=== PATIENT | male | born 1960 | race Caucasian/White ===

== ENCOUNTER 2016-11-04 15:17 | Emergency (ER) | payer BC ==
[~2016-11-04] VITALS: Ht 177.8 cm; Wt 99.4 kg
[~2016-11-04 15:17] MED LIST: HYDR-5688 PO; LVNIS150 SQ; OMEG10007 PO; ONDA4TAB65 PO; PRT40 PO; RXC5 PO; SYN150 PO
[2016-11-04 15:34] VITALS: TEMP 36.5; O2SAT 93; Ht 177.8 cm; Wt 99.4 kg
[2016-11-04] MEDS ORDERED: PANT40TA PO (16:57)
[2016-11-04] MEDS ORDERED: OXYC-609 PO (16:57)
[2016-11-04] MEDS ORDERED: HYDR-5688 PO (16:57)
[2016-11-04] MEDS ORDERED: LEVO150T PO (16:57)
[2016-11-04] MEDS ORDERED: ENOX120I SQ (16:57)
[2016-11-04] MEDS ORDERED: ONDA4TAB46 PO (16:57)
[2016-11-04 17:14] VITALS: BP 138/72; PULSE 78
[2016-11-04] MEDS ORDERED: MULT-506 PO (18:17)
[2016-11-04] MEDS ORDERED: FURO-85 PO (18:17)
--- NOTE | 2016-11-06 00:24 | EMERGENCY ROOM VISIT NOTE ---
ED Visit Note First contact with patient: 15:46 Chief Complaint: I've been bleeding from the right side of my nose for the last 3 hours. History of Present Illness: Mr. Medrano 55-year-old white male who ambulates into the ED complaining of a spontaneous nosebleed from the right nostril that started 2 hours ago. Historically patient has a history of lower extremity and pulmonary embolism and is on Lovenox. He reports since being on Lovenox he has had an occasional episode of epistaxis mostly from the right side of the nose that quickly resolves with nasal pressure. Patient reports approximately 3 hours before he arrived into the ED he developed a spontaneous epistaxis from the right nostril. Since that time he has tried multiple attempts to control bleeding but has been unsuccessful; it seems the last time he was here for his nosebleed and he was given Afrin and a nasal clip, he did report he tried these attempts but was unsuccessful. He has not identified any aggravating or alleviating factors related to the bleeding. He denies taking any medication for the bleeding prior to arrival at the hospital. He denies any associated symptoms including other abnormal or unusual bleeding, difficulty breathing, headache, dizziness, lightheadedness, chest pain, shortness of breath, abdominal pain, nausea/vomiting. Review of Systems: As noted above in history of present illness. 8 body systems were reviewed and found to be negative as noted above. Past Medical History: As noted above and bronchitis, pancreatic cancer, basal cell cancer, status post cholecystectomy and unspecified foot surgery. Current Medications: Medications Dose Route/Sig Max Daily Dose Days Date Category Dose Instructions Andale-3 (Fish Oil) 1 Ea Cap 1 Cap PO DAILY 10/28/16 Reported Multivitamin (Multivitamins) Tab 1 Tab PO DAILY 10/28/16 Reported Lasix (Furosemide) 20 Mg Tab Unknown Dose PO DAILY 10/28/16 Reported [place] 5MG/325MG (Acetaminophen/Hydrocodone Bitart) Tab 1-2 Tablet PO Q 6 HRS PRN 09/26/16 Rx PRN PAIN Zofran (Ondansetron Hcl) 4 Mg Tab 1 Tab PO Q4H PRN 3 09/15/16 Rx Synthroid (Levothyroxine Sodium) 150 Mcg Tab 150 Mcg PO DAILYBB 30 09/15/16 Rx Pantoprazole Sodium (Pantoprazole) 40 Mg Tab 40 Mg PO DAILY 30 09/15/16 Rx Oxycodone HCl 5 Mg Tab 5 Mg PO Q6 PRN 10 09/15/16 Rx Lovenox (Enoxaparin) 150 Mg/1 Ml Inj 120 Mg SQ ONE 14 09/15/16 Rx Allergies to Medications: Patient denies. Social History: Patient is currently employed; he feels safe in his home environment; he denies tobacco and alcohol use. Physical Examination: Vital Signs: Date Time Temp Pulse Resp B/P Pulse Ox O2 Delivery O2 Flow Rate FiO2 11/04/16 17:14 78 16 138/72 11/04/16 15:34 36.5 86 18 139/76 93 Room Air GENERAL: 55-year-old male in no acute distress, chronically ill-appearing, afebrile and hemodynamically stable. NEUROLOGICAL: Awake, alert and oriented to person, place and time. Answering questions appropriately and following commands. Normal gait. Good hand eye coordination. No focal motor sensory deficits. SKIN: Warm, dry and jaundice. HEENT: Atraumatic and normocephalic. PERRLA. Sclera jaundice and conjunctiva pink. Active bleeding from the right nostril and no bleeding from the left nostril. No tenderness over the nasal bones. No obvious soft tissue injury. No facial tenderness around the orbits with the zygomatic arch. Airway is patent. There is a small amount of blood in the posterior pharyngeal area. Speech normal. THORAX: Lungs sounds are clear to auscultation and equal bilaterally with symmetrical chest wall. No wheezing, rales or rhonchi. ED Course: Patient is assessed as noted above. A 5.5 cm Rapid Rhino nasal balloon was placed in the right nostril. Initially I only put 4 mL of air in the balloon but he continued to bleed around this so I slowly increased the air tool total of 5.5 mL which then control bleeding. Discharged upon moving no bleeding reoccurred so he was discharged home in stable condition. Clinical Impression: Right nostril epistaxis. Disposition: Patient discharged home in stable condition; prior to departure he subjectively reported he was having pain in his right nostril and rated this discomfort 2/10. Plan: Patient was encouraged to continue his current medications as prescribed. Patient was encouraged to follow-up with PCP or return to the ED and 36-48 hours to have the nasal tampon removed. Patient was also given the name and phone number of the ENT specialist on-call for possible follow-up. Patient was encouraged return the ED for recurrent bleeding, any new abnormal bleeding, fevers or any new/concerning symptoms.
== END 2016-11-04 17:15 | disposition home or self-care (01) ==
LOC: C.EDB 15:18 → C.EDD 17:15
DX: R04.0 Epistaxis (principal); Z86.711 Personal history of pulmonary embolism; Z79.01 Long term (current) use of anticoagulants; Z85.07 Personal history of malignant neoplasm of pancreas; Z90.49 Acquired absence of other specified parts of digestive tract; Z98.890 Other specified postprocedural states

== ENCOUNTER → 2016-11-27 | Outpatient (CLI) | payer BC ==
[~2016-11-27] MED LIST changes: +ENOX120I SQ; +FURO-85 PO; +LEVO150T PO; -LVNIS150 SQ; +MULT-506 PO; -OMEG10007 PO; +ONDA4TAB46 PO; -ONDA4TAB65 PO; +OXYC-609 PO; +PANT40TA PO; +POTA20TA16 PO; -PRT40 PO; -RXC5 PO; -SYN150 PO
--- NOTE | 2016-11-27 14:33 | DIAGNOSTIC IMAGING REPORT ---
BILIARY ULTRASOUND CLINICAL HISTORY: PANCREATIC CANCER C25.3 COMPARISON STUDY: 09/11/2016 FINDINGS: There are in numerable space-occupying hepatic masses consistent with extensive hepatic metastasis. The gallbladder surgically absent. There is no right-sided hydronephrosis. There was suboptimal evaluation of the pancreas. The spleen is enlarged measuring 18.8 cm. There is moderate ascites. There is no definite ductal dilatation. The common bile duct measured 5 mm. IMPRESSION: 1. Innumerable space-occupying hepatic masses consistent with extensive metastasis 2. Surgically absent gallbladder 3. Ascites Electronically signed by: Felipe Lin M.D. 11/27/2016 2:31 PM Dictated Date/Time: 11/27/2016 2:27 PM
== END | disposition home or self-care (01) ==
LOC: C.ULTR 13:48
PROVIDERS: ATTEND Internal Medicine Hematology & Oncology
DX: C25.3 Malignant neoplasm of pancreatic duct (principal); R16.0 Hepatomegaly, not elsewhere classified; R18.8 Other ascites; Z90.49 Acquired absence of other specified parts of digestive tract

== ENCOUNTER → 2016-12-17 | Outpatient (CLI) | payer BC ==
[~2016-12-17] MED LIST changes: +OPTIRAY 320 IV PRN
--- NOTE | 2016-12-17 10:31 | DIAGNOSTIC IMAGING REPORT ---
CHEST CT WITH CONTRAST CT DOSE: 1751.15 mGy.cm HISTORY: Pancreatic carcinoma PANCREATIC CA TECHNIQUE: Multiaxial CT images of the chest were performed following the intravenous administration of contrast. COMPARISON: None. FINDINGS: Mild is interstitial changes throughout both hemithoraces. Multiple not multiple nonspecific parenchymal nodules bilaterally. 4 mm right peritracheal nodule transaxial image 69. 2 cm partially chronic nodule anterior right cardiophrenic angle within the right upper lobe. Pleural-based densities posterior aspect right as well as left hemithorax. Several small vague additional parenchymal densities bilaterally. Bronchiectatic change with mild right as well as left lower lobe atelectatic change. Small right effusion. Minimal left effusion. Findings of diffuse hepatic metastatic change. No major mediastinal or hilar adenopathy. No significant mediastinal or hilar adenopathy. Moderate degenerative changes of the osseous structures. IMPRESSION: 1. Findings highly suspect for metastatic parenchymal and/or pleural based nodularity throughout both hemithoraces. 2. Focal basilar atelectatic and/or chronic interstitial-type change.. 3. Diffuse hepatic metastatic disease. 4. No evidence for major hilar or mediastinal adenopathy. Electronically signed by: Tony Wallace M.D. 12/17/2016 10:29 AM Dictated Date/Time: 12/17/2016 10:23 AM
--- NOTE | 2016-12-17 11:11 | DIAGNOSTIC IMAGING REPORT ---
CT OF THE ABDOMEN AND PELVIS WITH CONTRAST CLINICAL HISTORY: Metastatic pancreatic cancer. Rising bilirubin. COMPARISON STUDY: CT of the abdomen and pelvis September 12, 2016 and right upper quadrant ultrasound November 27, 2016. TECHNIQUE: Following IV administration of 94 mL of Optiray-320, axial images of the abdomen and pelvis were obtained from the lung bases to the proximal femurs. Images were reviewed in the axial, sagittal, and coronal planes. IV contrast was administered without complication. Oral contrast was administered. FINDINGS: The chest will be reported separately. Innumerable bilobar hepatic metastases are noted. The majority of these have mildly increased in size since exam of September 12, 2016. An index segment 5/4 lesion shown on image 45 measures 11 x 10 cm. It previously measured 10.3 x 8.6 cm. An index segment 7 lesion measures 12.8 x 9.5 cm. It previously measured 12 x 8.5 cm. A lateral segment lesion shown on image 42 measures 3.1 cm. It has slightly decreased in size. It previously measured 3.5 cm. Overall, the hepatic metastases have progressed since prior exam. Splenomegaly is noted with suspected evolving splenic infarcts as shown on prior exam. The primary pancreatic tail lesion is slightly decreased in size. It now measures 5.1 cm. It previously measured 5.9 cm. The splenic vein is occluded, as before. Associated collaterals are noted. The main, left and right portal veins are patent. Biliary ductal dilatation within the lateral segment of the liver is again noted. The liver is enlarged. Massive ascites has significantly increased since prior exam. Several peritoneal nodules are noted. The adrenal glands and kidneys are normal. There is no hydronephrosis. There is no evidence for a bowel obstruction. A 5 mm sclerotic lesion within the L4 vertebral body is new since prior exam. A small sclerotic lesion within the right seventh rib is new. IMPRESSION: 1. Overall, progression of extensive hepatic metastatic disease since exam of September 12, 2016. The majority of the lesions have mildly increased in size while a few lesions have slightly decreased in size. 2. Significant interval increase in massive abdominal and pelvic ascites. 3. Interval development of small sclerotic lesions within the L4 vertebral body and right seventh rib which are suggestive of small skeletal metastases. 4. Mild interval decrease in size of the primary pancreatic tail lesion. 5. Evolving splenic infarcts. 6. No bowel obstruction. 7. Anasarca. Electronically signed by: Alhaji Ruano M.D. 12/17/2016 11:10 AM Dictated Date/Time: 12/17/2016 10:53 AM
== END | disposition home or self-care (01) ==
LOC: C.CTS 09:37
PROVIDERS: ATTEND Internal Medicine Hematology & Oncology
DX: C25.3 Malignant neoplasm of pancreatic duct (principal); R18.8 Other ascites; M89.9 Disorder of bone, unspecified; D73.5 Infarction of spleen; R91.8 Other nonspecific abnormal finding of lung field; C78.7 Secondary malignant neoplasm of liver and intrahepatic bile duct

== ENCOUNTER 2016-12-20 13:08 | Day surgery (SDC) | payer BC ==
[~2016-12-20] VITALS: Ht 177.8 cm; Wt 101.0 kg
[~2016-12-20 13:08] MED LIST changes: +CEFAZOLIN 2000 MG/60 ML D5W IV SCH; +LACTATED RINGER'S 1000ML 1,000 ML IV SCH; -OPTIRAY 320 IV PRN; -POTA20TA16 PO
[2016-12-20] MEDS ORDERED: POTA20TA16 PO (13:31)
[2016-12-20 13:39] VITALS: BP 109/73; PULSE 82; TEMP 36.9; O2SAT 95; Ht 177.8 cm; Wt 101.0 kg
[2016-12-20] MEDS ORDERED: LIDOCAINE HCL 2% 2 ML VIAL (20MG/ML) ONE (14:09)
[2016-12-20] MEDS ORDERED: PROPOFOL IV EMULSION 10 MG/ML 20 ML VIAL IV ONE (14:09)
[2016-12-20] MEDS ORDERED: SUCCINYLCHOLINE CHLORIDE 20 MG/ML 10 ML VIAL IV ONE (14:09)
[2016-12-20] MEDS ORDERED: ONDANSETRON INJ 2 MG/ML 2 ML VIAL ONE (14:09)
[2016-12-20] MEDS ORDERED: DEXAMETHASONE SOD INJ 4 MG/ML VIAL ONE (14:09)
[2016-12-20] MEDS ORDERED: MIDAZOLAM HCL 1 MG/ML 2ML VIAL ONE (14:10)
[2016-12-20] MEDS ORDERED: FENTANYL CITRATE INJ 50 MCG/1 ML 2 ML VIAL ONE (14:10)
[2016-12-20 14:22] VITALS: BP 109/73; PULSE 82; TEMP 36.9; O2SAT 95
--- NOTE | 2016-12-20 14:55 | History & Physical Bridge Note ---
H&P Re-Evaluation Bridge Note: I have examined the patient, reviewed the History & Physical and in the interval since the performance of the History & Physical I have noted the following changes of clinical significance: No changes noted
--- NOTE | 2016-12-20 14:57 | Discharge Instructions ---
Discharge Instructions Admission Reason for Admission: Ascites, Pancreatic Cancer Discharge Discharge Diagnosis / Problem: Ascites, Pancreatic Cancer Discharge Goals Goal(s): Decrease discomfort, Improve function Activity Recommendations Activity Limitations: as noted below Lifting Limitations: no more than 5 pounds Exercise/Sports Limitations: until after follow-up appointment May Resume Sexual Activity: after follow-up appointment Shower/Bathe: tomorrow . Instructions / Follow-Up Instructions / Follow-Up Please follow-up with Dr. Hoyos in the office in 1-2 weeks. Current Hospital Diet Patient's current hospital diet: Discharge Diet Recommended Diet: Regular Diet Pending Studies Studies pending at discharge: no Medical Emergencies . Who to Call and When: Medical Emergencies: If at any time you feel your situation is an emergency, please call 911 immediately. . Non-Emergent Contact Non-Emergency issues call your: Primary Care Provider, Surgeon Call Non-Emergent contact if: temperature is above 101, your pain is not controlled, wound has increased drainage, wound has increased redness . "Provider Documentation" section prepared by Josiane Bellamy. VTE Core Measure Inpt VTE Proph given/why not?: Unfractionated heparin SQ, SCD's
[2016-12-20] MEDS ORDERED: ATROPINE SULFATE 0.1 MG/ML 5ML SYR IV PRN (15:00)
[2016-12-20] MEDS ORDERED: ONDANSETRON INJ 2 MG/ML 2 ML VIAL IV PRN ×2 (15:00→15:45)
[2016-12-20] MEDS ORDERED: EpHEDrine SULFATE INJ 50 MG/ML AMP IV PRN (15:00)
[2016-12-20] MEDS ORDERED: ALBUMIN HUMAN 5% 12.5 GM/250 ML VIAL IV ONE (15:13)
[2016-12-20] MEDS ORDERED: PHENYLEPHRINE 100MCG/ML 5ML SYR ONE (15:31)
[2016-12-20] MEDS ORDERED: SODIUM CHLORIDE 0.9% 1000ML 1,000 ML IV SCH (15:39)
[2016-12-20] MEDS ORDERED: KETOROLAC TROMETHAMINE 30 MG/ML VIAL IV. PRN (15:45)
[2016-12-20] MEDS ORDERED: HYDROCODONE/ACETAMOPHEN 5/325MG TAB PO PRN ×2 (15:45)
[2016-12-20] MEDS ORDERED: IBUPROFEN 600 MG TAB PO PRN (15:45)
--- NOTE | 2016-12-20 15:55 | [facility] Operative Report ---
Operative Report Operative Date Dec 20, 2016. Pre-Operative Diagnosis symptomatic malignant asictes Post-Operative Diagnosis same Procedure(s) Performed placement of abdominal pleurex drainage catheter Etl Consultant Surgeon(s) kamlesh Watson Findings silvia ascitic fluid Anesthesia GET Complication(s) None Disposition Recovery Room / PACU I attest to the content of the Intraoperative Record and any orders documented therein. Any exceptions are noted below.
[2016-12-20] MEDS: FENTANYL CITRATE INJ 50 MCG/1 ML 2 ML VIAL IV PRN ×4 (16:00→16:20)
--- NOTE | 2016-12-20 16:14 | OPERATIVE REPORT ---
DATE OF OPERATION: 12/20/2016 PREOPERATIVE DIAGNOSIS: Metastatic pancreatic cancer with a symptomatic ascites. POSTOPERATIVE DIAGNOSIS: Same. PROCEDURE: Placement of abdominal peritoneal PleurX catheter. SURGEON: Zeesahn Hoyos DO [facility] DEMON[employer]ATOR: Petar Watson PA-C ESTIMATED BLOOD LOSS: Approximately 10 mL COMPLICATIONS: No immediate. ANESTHESIA: General. DESCRIPTION OF PROCEDURE: After informed consent was obtained, the patient was taken to the operating suite, placed in supine position. After successful intubation, the abdomen was shaved and sterilely prepped and draped in usual fashion. In the right mid to lower quadrant, a small skin incision made with an 11 blade scalpel. A finder needle was advanced and with one stick, yellow silvia ascitic fluid was able to be obtained. We advanced the guidewire towards the pelvis and then removed the needle. A dilator was advanced over the guidewire. After this, a larger dilator were made with a peel away sheath was then advanced over the guidewire as well. Up in the right upper quadrant, made a second incision and tunneled the PleurX catheter through it, so that the cuff was just under the skin at the upper incision. We then used the stiffening guidewire and removed the vascular dilator and advanced the catheter and stiffening stylet through the peel away sheath. We then removed the stylet and peeled away the sheath leaving the catheter in place. We then connected the catheter to some PleurX vacuum containers then we were able to take out about 2000 mL of ascitic fluid. This did make a dramatic difference in his distention. He tolerated this quite nicely. With spillage, etc. putting the catheter in, we probably withdrew close to 2500 mL. Both the lower incisions, we closed with 2-0 silk in a [id number] fashion. We then did 2 pursestring 2-0 silks around the catheter itself. There was no leakage at the end of the procedure. A drain sponge as well as Op-Site dressing were placed. The patient was awakened, extubated, and transferred to recovery in stable condition. I attest to the content of the Intraoperative Record and any orders documented therein. Any exceptio ns are noted below.
--- NOTE | 2016-12-20 16:43 | Anesthesiology Progress Note ---
Anesthesia Post Op Note Date & Time Dec 20, 2016 at 16:42 Vital Signs Pain Intensity: 0.0 Vital Signs Past 12 Hours Date Time Temp Pulse Resp B/P Pulse Ox O2 Delivery O2 Flow Rate FiO2 12/20/16 16:30 36.7 93 14 118/72 92 Nasal Cannula 2 12/20/16 16:20 92 12 115/76 92 Nasal Cannula 2 12/20/16 16:10 91 23 119/79 96 Mask 10 12/20/16 16:00 91 13 117/77 95 Mask 10 12/20/16 15:52 36.6 94 16 114/73 98 Mask 10 12/20/16 14:22 36.9 82 22 109/73 95 Room Air 12/20/16 13:39 36.9 82 22 109/73 95 Room Air Notes Mental Status: alert / awake / arousable, participated in evaluation Pt Amnestic to Procedure: Yes Nausea / Vomiting: adequately controlled Pain: adequately controlled Airway Patency, RR, SpO2: stable & adequate BP & HR: stable & adequate Hydration State: stable & adequate Anesthetic Complications: no major complications apparent
[2016-12-20 16:45] VITALS: BP 114/72; PULSE 82; TEMP 36.5; O2SAT 94
[2016-12-20] MEDS ORDERED: OXYCODONE HCL IR 5 MG TAB (IMMEDIATE RELEASE) PO ONE (17:00)
[2016-12-20] MEDS ORDERED: NURSING VERBAL MED ORDER ONE (17:15)
[2016-12-20 17:20] VITALS: O2SAT 92
[2016-12-20 17:45] VITALS: PULSE 91; TEMP 36.5; O2SAT 97
== END 2016-12-20 18:20 | disposition home or self-care (01) ==
LOC: C.ACU 13:08
PROVIDERS: ATTEND Surgery
DX: C25.9 Malignant neoplasm of pancreas, unspecified (principal); R18.8 Other ascites; D23.9 Other benign neoplasm of skin, unspecified; L25.9 Unspecified contact dermatitis, unspecified cause; Z98.890 Other specified postprocedural states

== ENCOUNTER → 2017-01-07 | Outpatient (CLI) | payer BC ==
[~2017-01-07] MED LIST changes: -CEFAZOLIN 2000 MG/60 ML D5W IV SCH; -LACTATED RINGER'S 1000ML 1,000 ML IV SCH; +POTA20TA16 PO
[2017-01-07 14:56] LABS: HEMATOCRIT 31.4 % (42-52); MEAN CELL VOLUME 89.7 fL (80-100); MEAN CORPUSCULAR HEMOGLOBIN 29.4 pg (25-34); MEAN CORPUSCULAR HGB CONC 32.8 g/dl (32-36); PLATELET COUNT 261 K/uL (130-400); WHITE BLOOD COUNT 15.56 K/uL (4.8-10.8)
[2017-01-07 15:13] LABS: ALT/SGPT 43 U/L (12-78); BLOOD UREA NITROGEN 24 mg/dl (7-18); BUN/CREATININE RATIO 28.4 (10-20); CALCIUM 8.5 mg/dl (8.5-10.1); CARBON DIOXIDE 24 mmol/L (21-32); CHLORIDE 98 mmol/L (98-107); CREATININE 0.86 mg/dl (0.60-1.40); GLUCOSE 87 mg/dl (70-99); POTASSIUM 4.6 mmol/L (3.5-5.1); SODIUM 134 mmol/L (136-145)
[2017-01-07 15:18] LABS: ALB/GLOB RATIO 0.3 (0.9-2); ALKALINE PHOSPHATASE 1115 U/L (45-117); AST/SGOT 185 U/L (15-37)
--- NOTE | 2017-01-16 07:25 | CODING QUERY NO DIAGNOSIS ---
Valid Physician Order Needed A valid physician order must be submitted in order to properly bill for the service(s) provided, including date of service(s), valid diagnosis, and physician signature. If these tests are done on a recurring basis the original physican order must be submitted in order to code and bill for the service(s) provided. Please fax us the original, signed physician order so that we may expedite billing to [phone] DOS 01/07/17 * CBC, CMP, MAGNESIUM ORDERED BY DR. SHAHID Thank you Lydia [facility] Information Management
--- NOTE | 2017-01-25 07:28 | CODING QUERY NO DIAGNOSIS ---
TREATMENT RENDERED WITHOUT A DIAGNOSIS To promote full compliance with coding requirements relating to patient care, physician participation is requested in all cases of floor layer helper uncertainty. Please assist us with providing a diagnosis/symptom for the test(s) below: A diagnosis/symptom was not documented on your Order. A valid diagnosis/symptom is required to bill all insurances. Please remember that we are unable to code a diagnosis of rule out, probable, possible, questionable, or suspected. Tests that require a diagnosis: DOS: 01/07/17 * CBC DIAGNOSIS: * CMP DIAGNOSIS: * MAGNESIUM DIAGNOSIS: Provider Signature: Date: Thank you Lydia Zambrano [facility] Information Management Once completed, please kindly fax back to [phone] For questions please call [phone]
== END | disposition home or self-care (01) ==
LOC: C.LABSPEC 13:40
PROVIDERS: ATTEND Family Medicine
DX: C25.9 Malignant neoplasm of pancreas, unspecified (principal)